=== PATIENT | male | born 1950 | race Caucasian/White ===

== ENCOUNTER 2021-08-14 15:01 | Outpatient (CLI) | payer MEDICARE | END 2021-08-14 15:02 | disposition home or self-care (01) | LOC: NAV RAD 15:01 | PROVIDERS: ATTEND Family Medicine | DX: M54.40 Lumbago with sciatica, unspecified side (principal); M47.816 Spondylosis without myelopathy or radiculopathy, lumbar region | CPT/HCPCS: 72100 ==